=== PATIENT | male | born 1995 | race Caucasian/White ===

== ENCOUNTER 2016-06-21 08:51 | Inpatient (IN) | payer OTHER ==
[~2016-06-21] VITALS: Ht 182.9 cm; Wt 106.5 kg
--- NOTE | ~2016-06-21 | CLPRLASSUM ---
PATIENT: PATRICK ARNOLD | | [facility] UNIT #: [id number] | [address] AGE/SEX: 20 M : [birth year] | [address] | [place] [address] ADMIT/REG DATE: 06/21/16 | ROOM: [facility] LOC: ADTC | ADTC | Client Problem List/Assessment Summary Date: 06/22/16 Problems identified by the client: Client reported he is here on a plea agreement deal. Problems identified by significant others: His Dad was present when he brought him and reported client ended up in [facility] on a suicide attempt, and was ordered to come to treatment. Client's Strengths: Client identified his strengths as: He is a people, person, nice, easy to get along with and a hard worker. Problem List: Code: T Client continues to use alcohol &/or drugs despite ongoing negative consequences. Code: T Client does not "reach-out to others for help" and instead resumes using alcohol &/or drugs. Code: T Client has learned to deny or stuff feelings; needs to learn to identify and process feelings with safe people to acquire the necessary skills to maintain terminal gauger sobriety. Code: T Client needs to identify relapse warning signs and develop a plan to deal with them as they arise. Code De La Torre: T: to be addressed during course of treatment O: problem noted, expected to resolve itself with abstinence--specific tx plan not required R: problem noted, will be referred upon discharge PRIMARY COUNSELOR: CASS Rangel
--- NOTE | ~2016-06-21 | INDIVTXPLN ---
"PATIENT: PATRICK ARNOLD | | [facility] UNIT #: [id number] | [address] AGE/SEX: 20 M : [birth year] | [address] | [place] [address] ADMIT/REG DATE: 06/21/16 | [facility] ADTC | Individualized Treatment Plan Date: 06/22/16 Problem Statement/Issue Identified: Client continues to use alcohol &/or drugs despite ongoing negative consequences, and he did not reach out to others for help, but continued to drink. Goal: Client will learn how to identify negative consequences of his addiction, attend AA/NA meetings and meet men in recovery. Objectives/Activities to achieve goal: 1. Client is to complete the How to Get Started packet, process it with counselor and selected pages in group. Due Date:06/25/16 Complete: Incomplete: 2. Client is to complete Step 1, process it with counselor and selected pages in group. Due Date:06/28/16 Complete: Incomplete: 3. Client is to attend AA/NA meetings, ask for and get at least 5 names and numbers of men in recovery and share that list with counselor. Due Date:Ongoing Complete: Incomplete: Client signature Date Counselor signature Date Outcome/Measurement of Progress Towards Goal: Counselor's signature Date "
--- NOTE | ~2016-06-21 | INDIVTXPLN ---
"PATIENT: PATRICK ARNOLD | | [facility] UNIT #: [id number] | [address] AGE/SEX: 20 M : [birth year] | [address] | [place] [address] ADMIT/REG DATE: 06/21/16 | ROOM: [facility] LOC: ADTC | ADTC | Individualized Treatment Plan Date: 07/13/16 Problem Statement/Issue Identified: Client needs to identify relapse warning signs and develop a plan to deal with them as they arise. Goal: Client will learn how to identify relapse triggers and make a plan of how to avoid them. Objectives/Activities to achieve goal: 1. Client is to complete the Relapse Prevention packet and process it with counselor. Due Date:07/19/16 Complete: Incomplete: Client signature Date Counselor signature Date Outcome/Measurement of Progress Towards Goal: Counselor's signature Date "
--- NOTE | ~2016-06-21 | TXPLANREV ---
"PATIENT: PATRICK ARNOLD | | [facility] UNIT #: [id number] | [address] AGE/SEX: 20 M : [birth year] | [address] | [place] [id number] ADMIT/REG DATE: 06/21/16 | [facility] ADTC | Treatment Plan/Staffing Review Date: 07/06/16 Treatment plan was reviewed and determined appropriate as written: Yes Treatment plan was reviewed and the following changes/addition/deletions are necessary: Client is to continue working on treatment plan assignments. He is finishing up with feelings letters and will begin working on self-worth and getting to know himself better. Discharge plans were reviewed and determined appropriate as previously documented: Yes Discharge plans were reviewed and determined to be as follows: Client will be recommended to go to aftercare at [facility], attend 3-5 AA/NA meetings and return to his apartment. If he struggles in any way, he will be recommended to go to sober living. Other pertinent issues discussed during this staffing review include: None at this time. Staff Present: Poonam Camacho PRIMARY COUNSELOR: CASS Rangel Client Signature Counselor Signature Date Time "
--- NOTE | ~2016-06-21 | RESCARESUM ---
"PATIENT: DAKOTA ARNOLD | | [facility] UNIT #: [id number] | [address] AGE/SEX: 20 M : [birth year] | [address] | [place] [address] ADMIT/REG DATE: 06/21/16 | ROOM: [facility] LOC: ADTC | ADT | Summary of Residential Care Primary Counselor: Zhanna ODELL Date of Admission: 06/21/16 Date of Discharge: 07/19/16 Referral Source: [facility] Primary Care Provider Prior to Admission: Dr. Reynold Gonzalez Admitting Diagnosis: 303.90 Alcohol Use Disorder, Severe; 304.30 Cannabis Use Disorder, Severe; Depressive Disorder, NOS; Chemical-induced mood disorder; 305.10 Tobacco Dependence Discharge Diagnosis: Same Goals Achieved: Client was able to work on several things in treatment. He gained insight to the disease concept, he worked on grief, letting go of resentments, feelings, relapse prevention, getting to know himself, and taking time to learn how to meditate. Continued Obstacles to Sobriety/Relapse Issues: He identifies old people, places and things as obstacles. 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 Family Issues Addressed: Dakota and his family attended family education and we had a family session before he left. They were able to discuss family issues and are very much for his recovery and supporting him. Y Individual Therapy Y Group Therapy Y Educational Series on Substance Abuse Y Parents/Significant Others Attended Family Program N Acute Medical Problems During the Course of Treatment N Transferred to Hospital During the Course of Treatment Y Accepting of Substance Abuse Problem N Non-accepting of Substance Abuse Problem N Required Psychological or Psychiatric Consultation During the Course of Treatment Completed AA Step # 1 During This Level of Care Significant Incidences During Treatment: None Reason For Discharge: Y Completed Residential TX Goals and Ready For Next Level of Care N Left Tx Against Medical Advice/Treatment Goals Not Complete N Completed Residential Tx Goals But Refusing Continuing Care Recommendations N Discharged Due to Noncompliance/Treatment Goals not Completed N Discharged Earlier Than Planned Due to: PATIENT: DAKOTA ARNOLD | | [facility] UNIT #: [id number] | [address] AGE/SEX: 20 M : [birth year] | [address] | [place] [address] ADMIT/REG DATE: 06/21/16 | ROOM: [facility] LOC: ADTC | ADTC | Summary of Residential Care Continuing Care Plan/Recommendations: N Intensive Partial Care Y Sponsor N Partial Care Y AA Meetings/NA Meetings Y Outpatient N Co-dependency Services N Therapeutic Community N [address] N Mental Health Therapy N Marriage Counseling N Other Specific Continuing Care Plan: It is recommended that Dakota participate in an outpatient treatment program, attend 3-5 AA/NA meetings per week, get and call a sponsor on a regular basis, get a full time babysitter job, deal with all legal issues and learn how to work a strong program of recovery. PRIMARY COUNSELOR: CASS Rangel"
--- NOTE | ~2016-06-21 | TXPLANREV ---
"PATIENT: PATRICK ARNOLD | | [facility] UNIT #: [id number] | [address] AGE/SEX: 20 M : [birth year] | [address] | [place] [address] ADMIT/REG DATE: 06/21/16 | ROOM: [facility] LOC: ADTC | ADTC | Treatment Plan/Staffing Review "
--- NOTE | ~2016-06-21 | TXPLANREV ---
"PATIENT: PATRICK ARNOLD | | [facility] UNIT #: [id number] | [address] AGE/SEX: 20 M : [birth year] | [address] | [place] [address] ADMIT/REG DATE: 06/21/16 | [facility] | Treatment Plan/Staffing Review Date: 07/13/16 Treatment plan was reviewed and determined appropriate as written: Yes Treatment plan was reviewed and the following changes/addition/deletions are necessary: Client is to continue working on treatment plan assignments. He will begin working on relapse prevention. Discharge plans were reviewed and determined appropriate as previously documented: Yes Discharge plans were reviewed and determined to be as follows: Client will return to [place] to his apartment and has a job pending at [employer]. He will also be recommended to go to aftercare at [facility], attend 3-5 AA/NA meetings per week, as well as to get and call a sponsor on a regular basis. Other pertinent issues discussed during this staffing review include: None at this time. Staff Present: Debi Dobson PRIMARY COUNSELOR: CASS Rangel Client Signature Counselor Signature Date Time "
--- NOTE | ~2016-06-21 | INDIVTXPLN ---
"PATIENT: PATRICK ARNOLD | | [facility] UNIT #: [id number] | [address] AGE/SEX: 20 M : [birth year] | [address] | [place] [address] ADMIT/REG DATE: 06/21/16 | [facility] | Individualized Treatment Plan Date: 07/07/16 Problem Statement/Issue Identified: Client needs to identify ways to get to know himself better, which will in turn help improve self esteem, while he learns about the importance of spirituality. Goal: Client will get to know himself better, and learn about his thoughts and feelings and gain insight to spirituality and raising his self esteem. Objectives/Activities to achieve goal: 1. Client is to complete the Finish the Sentences, and I'm Worthwhile, because..... papers and process them with counselor. Due Date:07/13/16 Complete: Incomplete: 2. Client is to complete the Beginning Each Day papers on a daily basis, so he can learn about the positivity of his days, then process what he learns from them with counselor. Due Date:07/13/16 Complete: Incomplete: 3. Client is to complete 1-2 pages daily in the Quiet Moments packet and process them with counselor. Due Date:07/13/16 Complete: Incomplete: Client signature Date Counselor signature Date Outcome/Measurement of Progress Towards Goal: Counselor's signature Date "
--- NOTE | ~2016-06-21 | TXPLANREV ---
"PATIENT: PATRICK ARNOLD | | [facility] UNIT #: [id number] | [address] AGE/SEX: 20 M : [birth year] | [address] | [place] [phone] ADMIT/REG DATE: 06/21/16 | [facility] | Treatment Plan/Staffing Review Date: 06/29/16 Treatment plan was reviewed and determined appropriate as written: Yes Treatment plan was reviewed and the following changes/addition/deletions are necessary: Client is to continue working on treatment plan assignments. He is finished with Step 1 and will begin working on grief of a friend, and feelings letters. Discharge plans were reviewed and determined appropriate as previously documented: No. Discharge plans were reviewed and determined to be as follows: Client will benefit from going to sober living of some sort, but is hoping to return to his home and will do aftercare in [place], attend AA meetings and get a sponsor. Other pertinent issues discussed during this staffing review include: None at this time. Staff Present: Aide Dobson PRIMARY COUNSELOR: CASS Rangel Client Signature Counselor Signature Date Time "
--- NOTE | ~2016-06-21 | INDIVTXPLN ---
"PATIENT: PATRICK ARNOLD | | [facility] UNIT #: [id number] | [address] AGE/SEX: 20 M : [birth year] | [address] | [place] [id number] ADMIT/REG DATE: 06/21/16 | ROOM: [facility] LOC: ADTC | ADTC | Individualized Treatment Plan Date: 06/29/16 Problem Statement/Issue Identified: Client has learned to deny or stuff feelings, including grief and anger; needs to learn to identify and process feelings in a clean/sober manner. Goal: Client will learn how to identify and express feelings in a healthy, clean/sober manner. Objectives/Activities to achieve goal: 1. Client is to complete the Grief packet, which will include writing a goodbye letter to his friend who committed suicide, and process it all with counselor. Due Date:07/05/16 Complete: Incomplete: 2. Client is to write his parents a feelings letter, each separately, and process them with counselor and in family group, if/when able. Due Date:07/05/16 Complete: Incomplete: 3. Client is to write his friends boyfriend an angry letter, and process it with counselor. Due Date:07/05/16 Complete: Incomplete: Client signature Date Counselor signature Date Outcome/Measurement of Progress Towards Goal: Counselor's signature Date "
--- NOTE | 2016-06-21 13:23 | NUR ---
Education note: Client attended education speaker Neda on Tobacco.
--- NOTE | 2016-06-21 13:29 | NUR ---
ADMISSION NOTE Rights/Responsibilities: Copy given and explained to client. Signed and accepted by client. Client oriented to physical lay out of the ADTC unit, given Big Book and admission packet. A Filiberto was assigned.Tavares Client is a 20yr old single male. Referred by [facility]. Lives in [place], [place]. Brought to tx by father. DOC, alcohol, last used 06/18/16, ten drinks daily. Allergies: Peniciline, Meds: Nurse has them. Parents will particiapate in family sesions. Was searched no contraband. Initial paperwork given and guidelines gone over. Doctor was notified.
--- NOTE | 2016-06-21 14:20 | NUR ---
INITIAL/FAMILY SESSION 1 HR: Clt and his father were present. They advised clt came from , as he had been suicidal. He reported he was EPC'd but wasn't placed on the Mental Health Board. He was very quiet, had no questions, but his Dad did ask about family visiting and education. Clt was oriented to tx plans, schedules and what to expect from tx and this counselor. He stated his drug of choice is alcohol. Clt is to begin working on intitial paperwork.
--- NOTE | 2016-06-21 17:59 | NUR ---
Education: 1 Hour. Client attended "Forgiveness" lecture presented by staff.
--- NOTE | 2016-06-21 19:50 | NUR ---
RECOVERY 101 1 HR/ Clients all shared what they have struggled with in treatment and what helps them. This client shared he was into alcohol/pot, tried IOP and has had a couple DUI's so needed residential treatment.
--- NOTE | 2016-06-21 22:49 | NUR ---
tech note: Client was checked into his room. Client played a game for recreation & attended onsite NA meeting.Client was seen by the DR. First intro was given by the client. SE: coming to treatment.
--- NOTE | 2016-06-22 04:32 | NUR ---
tech note: client was motinless in no distress at all bed checks.
--- NOTE | 2016-06-22 13:54 | NUR ---
A.M. 1.5 hr res group/ratio 1:8/ Group heard a grief letter, a getting started, and also discussed shame, guilt, and forgiving self. This client related.
--- NOTE | 2016-06-22 15:21 | NUR ---
Tech Note: Client attended programming on Relapse Prevention and is working on Getting Started.
--- NOTE | 2016-06-22 16:28 | NUR ---
Relapse Prevention, 05/10 ration, 1.0 hours, Client attended and participated in relapse prevention education which focused on relapse triggers/issues.
--- NOTE | 2016-06-22 22:13 | NUR ---
TECH NOTE: Client attended Alumni meeting and on-site AA meeting. SE: education
--- NOTE | 2016-06-22 22:54 | NUR ---
EDUCATION NOTE: 1HR lecture on Shame given by counselor
--- NOTE | 2016-06-23 04:38 | NUR ---
Bed note: Client was in bed with eyes closed and no distress at all bed checks.
--- NOTE | 2016-06-23 10:01 | NUR ---
Tech note: Client is working on Step 1 and mtg with theron
--- NOTE | 2016-06-23 12:42 | NUR ---
Education note: Client attended speaker Abundio Morales
--- NOTE | 2016-06-23 12:51 | NUR ---
RES GROUP 1.5 HRS. RATIO 04/27. Topics today were assignments shared, addiction itself, craving, and spirituality. This client was quiet but remained attentive all through group.
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
--- NOTE | 2016-06-23 16:06 | NUR ---
SPIRITUAL EDUCATION 1 HR. Topic today was on how addiction is a disease of body mind and spirit and how the Steps fit in treating the SPIRIT. We also talked about ways to spirituality, payoffs, and how spirituality is related to both addiction and recovery.
--- NOTE | 2016-06-23 18:14 | NUR ---
Education: 1 Hour. Client attended "Boundaries" lecture presented by staff.
--- NOTE | 2016-06-23 22:00 | NUR ---
Tech note : Client played pictionary for rec and attended an onsite NA meeting. SE: Education
--- NOTE | 2016-06-24 05:16 | NUR ---
tech note: client was motionless in no distress at all bed checks.
--- NOTE | 2016-06-24 09:56 | NUR ---
TRAUMA NOTE: Clt denies any trauma in his life.
--- NOTE | 2016-06-24 11:30 | NUR ---
AM GRP 1.5 HRS, Ratio 1:11/ Clt sat mostly quiet, until prompted, then stated he didn't have anything to share.
--- NOTE | 2016-06-24 15:39 | NUR ---
Tech Note: Client participated in Spiritual Enrichment in the morning and went for an outdoor walk in the afternoon. Client stated that he is working on Step One.
--- NOTE | 2016-06-24 15:52 | NUR ---
step education/1 hr/ Focus was on step 6 and looking at character defects. Each person shared some questions and answers and identified what character defects they are ready to let go of and what ones they are not willing to let go of. This client participated.
--- NOTE | 2016-06-24 16:31 | NUR ---
Education 1 Hour: Client heard a presentaion on "Wellness in Recovery."
--- NOTE | 2016-06-24 23:02 | NUR ---
Tech note: Client worked on craft projects for the dance for rec and attended AA meeting SE:KEVIN hidalgo
--- NOTE | 2016-06-25 00:05 | NUR ---
Education note: Clients watched a movie on "my attitude' by David Powers.
--- NOTE | 2016-06-25 04:50 | NUR ---
Bed note; client was motionlees, with eyes closed at all bed checks.
--- NOTE | 2016-06-25 11:30 | NUR ---
Group 1.5 hr/ 11:1 Clients all got into discussion about how they found spirituality or struggle with HP concepts and a peer shared GS packet. This client was attentive.
--- NOTE | 2016-06-25 14:02 | NUR ---
PEER REVIEWS 1.25 HRS: Clt participated in peer reviews and took a risk to give open and honest feedback to those receiving a review.
--- NOTE | 2016-06-25 16:04 | NUR ---
Tech Note: Client went with group for outside walk and watched "Marijuana", by Guy Powers, for education. Clt is working on Step 1.
--- NOTE | 2016-06-25 23:31 | NUR ---
Tech Note: Client read guidelines with peers. Client watched tv. SE: Seeing his parents.
--- NOTE | 2016-06-26 05:29 | NUR ---
Bed Note: Client was motionless with eyes closed at all bed checks.
--- NOTE | 2016-06-26 15:32 | NUR ---
Tech Note: Client working on Step 1 and had visitors.
--- NOTE | 2016-06-26 20:24 | NUR ---
Tech Note: Client played a game for rec. They also attended the A.A.Meeting at [address] [place] [address]. SE: Vistation
--- NOTE | 2016-06-27 05:27 | NUR ---
Bed Note: Client was motionless with eyes closed at all bed checks.
--- NOTE | 2016-06-27 15:13 | NUR ---
Tech Note: Client participated in Big Book Study. Client stated that he is working on Step One.
--- NOTE | 2016-06-27 23:26 | NUR ---
Client attended A.A.Panel and helped with community clean.
--- NOTE | 2016-06-28 05:00 | NUR ---
Bed Note: Client was motionless with eyes closed at all bed checks.
--- NOTE | 2016-06-28 10:06 | NUR ---
Tech note: Client is working on Step 1 and was late for morning meditation.
--- NOTE | 2016-06-28 11:30 | NUR ---
AM GRP 1.5 HRS, Ratio 1:11/ Clt shared his How to Get Started pkt. He stated in it, that the most important people in his life as a kid were his parents, but in his teens it became his friends, and he was in and out of [facility], so got made fun of for it. He added that his best friend hung herself, and he is still very angry at her boyfriend, as she called and texted him, and he ignored it and/or didn't believe her. He heard he will be given the grief pkt to work on.
--- NOTE | 2016-06-28 14:35 | NUR ---
Education note: Client attended speaker for education Alban Godwin
--- NOTE | 2016-06-28 16:00 | NUR ---
RECOVERY 101 1 HR/ Clients all filled out list of 30 consequences from their use to help look at how each addictive chemical they ever used has caused problems and how minimizing can sabotage treatment. Discussed this and also learned about phases of recovery process from Denial to Acceptance & Surrender.
--- NOTE | 2016-06-28 22:32 | NUR ---
TECH NOTE: Client participated in playing Catch Phrase for REC and attended NA meeting. Redirected for sitting on the floor. SE: group
--- NOTE | 2016-06-28 23:54 | NUR ---
Education: 1 Hour. Client attended "Adult Children" presentation given by staff.
--- NOTE | 2016-06-29 05:20 | NUR ---
BED NOTE: Client was in bed, motionless with eyes closed all three bed checks.
--- NOTE | 2016-06-29 11:31 | NUR ---
GROUP 1.5 HRS. 1:10 Group discussion included defenses of blaming others and willingness to take responsibility for one's recovery. Peers processed HOW TO GET STARTED IN TREATMENT assignments. This client was mostly quiet and was redirected for having both feet up on the chair. He did share that he is working on grief due to friend's suicide.
--- NOTE | 2016-06-29 16:00 | NUR ---
Tech Note: Client attended speaker meeting, presented by Nutritional Services, and Relapse Prevention education. Client is currently working on a Grief pkt.
--- NOTE | 2016-06-29 16:25 | NUR ---
Relapse Prevention; 1.0 hours; Client attended and actively participated in relapse prevention which focused on compulsive behaviors and relapse.
--- NOTE | 2016-06-29 23:19 | NUR ---
Education note: 1 hour lecture given by counselor on "Self Esteem"
--- NOTE | 2016-06-29 23:25 | NUR ---
Tech note: Client worked on projects for the alumni michael for rec and attended AA meeting SEF:Evelyn
--- NOTE | 2016-06-30 04:10 | NUR ---
BED NOTE: Client was in bed, motionless with eyes closed all three bed checks.
--- NOTE | 2016-06-30 08:30 | NUR ---
IS 1 HR: Processed ashly's BPS. He shared about his family being close whn he grew up and he felt like he was in a normal family, but he didn't feel normal. He stated he always new he liked boys more than girls, but denied it, which he internalized, so beat himself up. He remembers feeling depressed, afraid to tell anyone, and when his friend told his parents, he became angry and distanced himself from the friend and his family. He accepts it today, and is good with it, but his parents are very gnosticist, so they just ignore it and don't talk about it. 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 He is to do a grief pkt on a friend who committed suicide.
--- NOTE | 2016-06-30 10:47 | NUR ---
Tech note: Client is working on Fl's and Mtg with cherie.
--- NOTE | 2016-06-30 11:35 | NUR ---
GROUP 1.5 HRS. 1:11 This client shared from his step 1 as assigned sharing pg. 10 and 15 examples of betraying values and pg. 11 effects on others. Group discussion included being honest and old behaviors especially dishonesty and keeping secrets.
--- NOTE | 2016-06-30 13:11 | NUR ---
Education note: Client attended speaker Augusto for education today.
--- NOTE | 2016-06-30 19:55 | NUR ---
SPIRITUaL EDUCATION 1 HR. Today we discussed difference between spirituality and islam, and then played a spiritual challenge game where group discussed thought provoking questions on spirituality and the meaning.
--- NOTE | 2016-06-30 22:41 | NUR ---
EDUCATION NOTE: 1 HR Counselor gave a lecture on Disease Concept
--- NOTE | 2016-06-30 23:24 | NUR ---
tech note: client played Pictionary for recreation & attended onsite NA meeting. Client was late for curfew. SE: NA meeting.
--- NOTE | 2016-07-01 04:08 | NUR ---
BED NOTE: Client was in bed, motionless with eyes closed all three bed checks.
--- NOTE | 2016-07-01 11:39 | NUR ---
Group 1.5 hrs 2:20 Client sat quietly for most of group. Client had to be redirected for talking with Leatha. Student: Cami Appiah
--- NOTE | 2016-07-01 15:16 | NUR ---
Tech Note: Client participated in Spiritual Enrichment in the morning and went for an outdoor walk in the afternoon. Client followed programming.
--- NOTE | 2016-07-01 16:48 | NUR ---
Family Education 3hrs Client attended family education and discussed past using history. Client shared about the consequences he experienced during active addiction. Client was accompanied by his mother and father. Client's father expressed how he was glad that his son was in treatment getting help. Client's mother expressed how she felt clueless to his drug use. Student: Cami Appiah
--- NOTE | 2016-07-01 22:05 | NUR ---
EDUCATION NOTE 1HR: Recovery committee presented information on recovery
--- NOTE | 2016-07-01 22:09 | NUR ---
EDUCATION NOTE 1HR: Clients watched Guy Powers video on Behavior
--- NOTE | 2016-07-01 22:32 | NUR ---
TECH NOTE: Client helped by doing crafts for the dance for REC, and attended AA meeting.
--- NOTE | 2016-07-02 04:36 | NUR ---
Bed note: client was in bed moitionless with eyes closed and no distress at all bed checks.
--- NOTE | 2016-07-02 12:40 | NUR ---
GROUP 1.5 HR/ 10:1 A Peer shared about never thinking about actions/impulsive and this led to group relating and sharing. This client got into sidetalk, but mostly was attentive and quiet.
--- NOTE | 2016-07-02 15:52 | NUR ---
PEER REVIEWS 1.25 HRS: Clt participated in peer reviews and took a risk to give open and honest feedback to those receiving a review.
--- NOTE | 2016-07-02 15:58 | NUR ---
Tech Note: Client watched video (The Enablers) and is working on Feelings Letters.
--- NOTE | 2016-07-02 21:54 | NUR ---
Tech Note : Client worked crafts and projects for the dance. Client watched TV.
--- NOTE | 2016-07-03 04:34 | NUR ---
Bed note: Client was in bed with eyes closed and no distress at all bed checks.
--- NOTE | 2016-07-03 17:49 | NUR ---
Tech Note: Client attended N.A. Panel and is working on FL's
--- NOTE | 2016-07-03 18:59 | NUR ---
tech note: client attended offsite Alumni Dance.
--- NOTE | 2016-07-04 04:50 | NUR ---
BED NOTE: Client was in bed, motionless with eyes closed all three bed checks.
--- NOTE | 2016-07-04 16:28 | NUR ---
Tech Note: Client participated in Big Book Study in the morning and went for a walk in the afternoon. Client stated that he is working on writing Feelings Letters.
--- NOTE | 2016-07-04 23:01 | NUR ---
tech note: Client attended AA Panel & participated in Community Clean. Client played cards & talked on the phone. SE: Pau.
--- NOTE | 2016-07-05 04:10 | NUR ---
bed note: client was in bed with eyes closed and no distress at all bed checks.
--- NOTE | 2016-07-05 10:38 | NUR ---
Tech notes: Client is working on Fl's.
--- NOTE | 2016-07-05 12:00 | NUR ---
Peer Review 1.5 hr/ Clients all participated in giving peer review to 4 peers on what they need to work on.
--- NOTE | 2016-07-05 12:52 | NUR ---
Education note: Client attended educational deangelo Devi on Marijuana.
--- NOTE | 2016-07-05 17:00 | NUR ---
FAMILY EDUCATION 3 HRS. Client was accompanied by his parents. They took part in the discussion on the family roles, codependency and detachment.
--- NOTE | 2016-07-05 21:13 | NUR ---
FAMILY GROUP 4;04/19 HR: Client, peers and attending family members heard several residential clients and their loved ones process FEELINGS LETTERS. Much of the focus tonight was on enabling and several attending family members owned that they are guilty of this and struggle with the concept of "tough love." Broken promises were also a common thread and family members are begining to see that they want to believe so badly that it sets them up to be manipulated in various ways. This client attended with his parents who were among those who admitted that they have enabled client for years. Both acknowledged that they are beginning to question the wisdom of their actions but verbalized how very difficult this is. Client and family members (?) had letters to process tonight, but with all that were in attendence, we ran out of time. Parents both said they would be happy to return next week and reaffirmed that after group. They both said it has been very meaningful. Client was relieved (!) and happy to put it off another week!!
--- NOTE | 2016-07-05 23:35 | NUR ---
Tech Note: Client attended N.A.Meeting. Client also went on walk for rec. He had family today.
--- NOTE | 2016-07-05 23:56 | NUR ---
Education Note: 1 hour lecture on communication given by counselor.
--- NOTE | 2016-07-06 04:10 | NUR ---
Bed Note: client was in bed with eyes closed and no distress at all bed checks.
--- NOTE | 2016-07-06 14:26 | NUR ---
A.M. 1.5 hr group/ratio 1:8/ Group heard a feelings letter. Discussion was on healthy verses unhealthy relationships and how addiction affects your children. This client was attentive.
--- NOTE | 2016-07-06 16:00 | NUR ---
IS 1 HR: Ashly shared his anger letter toward his friend's boyfriend, but stated it didn't help much, he's still really mad at him for not being there for his girlfriend so she wouldn't have killed herself. We discussed how it was still ultimately his friends choice. He also read the seymour letter to his friend. Ashly also shared his letters to his mother. He is to finish on his Dad's letter, then work on getting to know himself better and gain better self-esteem.
--- NOTE | 2016-07-06 17:06 | NUR ---
Relapse Prevention, 05/06, 1.0 hours, Client attended and actively participated in relapse prevention which focused on completing the quiz What Do You Know About Relapse?
--- NOTE | 2016-07-06 17:31 | NUR ---
Tech Note: Client is working on the TheMobileGamer (TMG) Book.
--- NOTE | 2016-07-06 23:12 | NUR ---
Tech Note: Client took walk around park for rec. Client attended A.A.Meeting. SE: A.A.Meeting
--- NOTE | 2016-07-06 23:23 | NUR ---
Education Note: Client attended a one hour session with [facility] on HIV/AIDS/STD's for education.
--- NOTE | 2016-07-07 04:46 | NUR ---
Bed Note: client was in bed with eyes closed and no distress at all bed checks.
--- NOTE | 2016-07-07 10:26 | NUR ---
Tech notes: Client is working on Spirtuality.
--- NOTE | 2016-07-07 12:50 | NUR ---
Group 1.5 hrs 1:10 Client participated in orientating a new peer on the purpose of group and guidelines. Student: Cami Appiah
--- NOTE | 2016-07-07 15:31 | NUR ---
SPIRITUAL EDUCATION 1 hr. Today we oriented newcomers, discussed Starfish story then reached out to newcomers writing letters of encouragment and welcome, and using word art to make Big Book Bookmarks as welcoming gift.
--- NOTE | 2016-07-07 16:00 | NUR ---
IS 1 HR: Ashly heard I called to ask his family to come to a family session, but they did not answer and his Mom has no room on her voice mail. He stated he will speak to them this weekend, and see if they are willing to come on the following Sat. He stated what he wants to talk to them about is his sexuality. We did discuss what he would like to say. He denies he's told anyone here, except his roommate, but not because he's worried they'll tribal judge him, but moreso, because people don't go around saying they are heterosexual, so why should he go around announcing he's bell? Ashly advised he is good w/ himself, just would like his parents to be, or at least be ok to talk about it.
--- NOTE | 2016-07-07 19:04 | NUR ---
Education: 1 Hour. Client attended Step 2 & Step 3 lecture given by staff.
--- NOTE | 2016-07-07 22:36 | NUR ---
Tech Note : Client went for a walk for rec and attened an onsite NA meeting. Client was redirected by feet on furniture. SE:
--- NOTE | 2016-07-08 05:13 | NUR ---
tech note: client was motionless in no distress at all bed checks.
--- NOTE | 2016-07-08 11:53 | NUR ---
Group 1.5 Hr Ratio 1:11/Topics were a feelings letter which lead to difficult dads. Client shared nothing and looked like he was going to sleep a couple times.
--- NOTE | 2016-07-08 13:43 | NUR ---
Tech Note: Client participated in Spiritual Enrichment in the morning and went for an outdoor walk in the afternoon. Client stated that he is working on, "Quiet Moments."
--- NOTE | 2016-07-08 14:14 | NUR ---
Education 1 Hour: Client heard a lecture and saw a demonstration on "Infection Prevention."
--- NOTE | 2016-07-08 16:05 | NUR ---
step Education/1 hr/ Focus was on step 8 "made a list of all persons we had harmed". Had them complete a set of questions on paper and then discussed. This person participated and shared he has a resentment towards a person who feels was responsible for a person dieing.
--- NOTE | 2016-07-08 23:02 | NUR ---
Tech note:client took walk for rec, participated in guided meditation and attended AA mtg. SE:KEVIN
--- NOTE | 2016-07-09 04:46 | NUR ---
Bed Note: Client was motionless with eyes closed at all bed checks.
--- NOTE | 2016-07-09 11:32 | NUR ---
GROUP 1.5 HRS. 1:9 Group discussion included processing step 1 assignment to included betraying values (pg. 10) and effects on onthers (pg. 11). This client was minimally involved in group and more involved in sidetalk with female peer GRETCHEN.
--- NOTE | 2016-07-09 12:38 | NUR ---
Peer Review 1.5 hr/ Clients all participated in giving peer review to 4 peers on what they need to work on.
--- NOTE | 2016-07-09 13:34 | NUR ---
Tech Note: Client watched Predator Pt.2 video and is working on Quiet Moments and Spirituality.
--- NOTE | 2016-07-09 23:43 | NUR ---
TECH NOTE: Client participated in reading guidelines, attended optional offsite AA meeting, and watched tv/movies SE: phone
--- NOTE | 2016-07-10 04:06 | NUR ---
BED NOTE: Client was in bed, motionless, with eyes closed all bed checks.
--- NOTE | 2016-07-10 15:51 | NUR ---
Tech Note: Client attended an off-site AA meeting in the morning and received a visit in the afternoon. Client stated that he is working on, "Quiet Moments" and "Toward Spirituality."
--- NOTE | 2016-07-10 19:42 | NUR ---
TECH NOTE: Client played [employer] for REC, attended offsite AA meeting and watched tv/movies. SE: Visitors
--- NOTE | 2016-07-11 04:09 | NUR ---
Bed Note: Clt lay motionless in bed with eyes closed showing no distress at all bed checks.
--- NOTE | 2016-07-11 14:49 | NUR ---
Tech Note: Client was smoking, in the [place]oke [place], with his 2 visitors in there with him. Tech walked outside and confronted client about breaking the rule of no visitors in the Smoke [place]. Client acknowledged that he knew the rule but they "were just talking". Tech informed visitors that they cannot go in there and reminded client. As tech was walking away the client laughed out loud.
--- NOTE | 2016-07-11 15:55 | NUR ---
Tech Note: Client read chapter 4 for Big Book study. Clt is working on Quiet Moments and Spirituality packets. Clt had visits and was redirected for having his visitors in the Smoke [place] with him.
--- NOTE | 2016-07-11 22:06 | NUR ---
Tech Note : Client listened to an AA panel member share his experience, strength and hope, watched tv and participated in community clean.
--- NOTE | 2016-07-12 04:48 | NUR ---
Bed Note: Clt lay motionless in bed with eyes closed showing no distress at all bed checks.
--- NOTE | 2016-07-12 10:19 | NUR ---
Tech notes: Client is working on Quiet Moments.
--- NOTE | 2016-07-12 11:30 | NUR ---
Group 1.5 hr/ 22:2 Clients all participated in Sculpturing today by role-playing, giving feedback and relating. This client was attentive and all did discuss relapse can happen to anyone, and how to prevent it.
--- NOTE | 2016-07-12 13:31 | NUR ---
Educational Note: Client watched a video "Inhalent Abuse"
--- NOTE | 2016-07-12 16:57 | NUR ---
Recovery 101 1 hr/ Clients all brought Big Books and were given highlighters to use big book as a tool in recovery. Group discussion was on honesty, half- measures, selfishness, resentments, forgiveness, 12 promises, acceptance, using sponsor, and more.
--- NOTE | 2016-07-12 18:20 | NUR ---
EDUCATION NOTE: 1HR Lecture on Feelings given by counselor.
--- NOTE | 2016-07-12 21:00 | NUR ---
FAMILY GROUP 4:1/ HR: Client, peers and attending family members heard this client and his parents process FEELINGS LETTERS. Much of the focus became client's "depression" which they say has been an issue even when he was a child. Much discussion followed on the need for accurate diagnosis, appropriate medication in addition to counseling for the best defense. It was also stressed that client needs to understand that alcohol (his drug of choice) is a depressant as well. Others who have similar issues spoke up in support and personal sharing. One attending family member shared that he has taken medication for years which he believes levels him out so that he can continue to live a recovery lifestyle. This individual stressed that this client's choices are between he and his physician but cautioned that he will face judgement by some members of [facility]. Client's parents acknowledged that they have learned a lot attending education sessions/groups. The recognize that they have enabled client and it has not helped him. They both pledged that they will always be there, no matter what.
--- NOTE | 2016-07-12 22:39 | NUR ---
Tech note: Client was in family
--- NOTE | 2016-07-13 04:38 | NUR ---
bed note:client was in bed with eyes closed and no distress at all bed checks.
--- NOTE | 2016-07-13 14:27 | NUR ---
Tech Note: Client participated in light stretching in the morning and went for an outdoor walk in the afternoon. Client stated that he is working on, "Quiet Moments" and "Toward Spirituality."
--- NOTE | 2016-07-13 14:42 | NUR ---
Education 0.5 Hour: Client watched the video, "How to Sabotage Your Treatment."
--- NOTE | 2016-07-13 15:18 | NUR ---
A.M. 1.5 hr group/ratio 1:9/ Group heard some feelings letters, grief packet, and a getting started assignment. Discussed fear of making friends when they have left in the past, importants of getting a sponsor, and having cravings. This client was attentive and gave some feedback.
--- NOTE | 2016-07-13 18:51 | NUR ---
Education: 1 Hour. Staff gave lecture on Step 1.
--- NOTE | 2016-07-13 23:38 | NUR ---
tech note: client played Pictionary for recreation,attended Guided Meditation & onsite AA meeting. SE: All day.
--- NOTE | 2016-07-14 04:41 | NUR ---
tech note: Client was motionless in no distress at all bed checks.
--- NOTE | 2016-07-14 10:06 | NUR ---
Tech note: Client is working on Quiet Moments and Spirtuality
--- NOTE | 2016-07-14 11:47 | NUR ---
Group 1.5 Hr Ratio 1:10/Topics were orientatinga new member to group rules and goals, a getting started packet and a vent letter. Group was interupted by a tornado drill. Client shared a vent letter to a person that did not do anything to prevent his friend from committing suicide.
--- NOTE | 2016-07-14 12:57 | NUR ---
Education note: Client attended educational speaker "Kit" on cross addiction.
--- NOTE | 2016-07-14 18:18 | NUR ---
Education: 1 Hour. Client attended Relapse Prevention lecture given by staff.
--- NOTE | 2016-07-14 18:24 | NUR ---
SPIRITUAL EDUCATION 1 HR. ORIENTED NEWCOMERS, DISCUSSED ADDICTIVE SELF VS SPIRITUAL SELF THEN DEPICTED IN ARTWORK.
--- NOTE | 2016-07-14 22:35 | NUR ---
tech note: Client played [employer]atch [employer] in recreation & attended onsite NA meeting. SE: NA.
--- NOTE | 2016-07-15 04:20 | NUR ---
Bed Note: Clt lay motionless in bed with eyes closed showing no distress at all bed checks.
--- NOTE | 2016-07-15 11:30 | NUR ---
AM GRP 1.5 HRS, Ratio 1:11/ Clt participated in grp discussion on various topics, and could relate to staying out of relationships, of controlling people, and it being both sexes, not just women, as a peer suggested.
--- NOTE | 2016-07-15 14:33 | NUR ---
Tech Note: Client participated in light stretching for morning exercise and went on an outdoor walk in the afternoon. Client stated that he is working on, "Quiet Moments."
--- NOTE | 2016-07-15 16:16 | NUR ---
Education 1 Hour: Client watched the video, "Feelings" by Father Dhruv.
--- NOTE | 2016-07-15 16:26 | NUR ---
Education 1 hr/ focus was on step 9 Making amends. This client said the relationship that bothers him the most is with his friends who was affected by his dirnking.
--- NOTE | 2016-07-15 19:00 | NUR ---
Education 1HR: Clt watched video entitled "Say Yes To Life" by father Rico Oropezaoth.
--- NOTE | 2016-07-15 22:46 | NUR ---
Tech Note: Clt played a game for recreation, attended GM and onsite AA mtg. SE was AA mtg
--- NOTE | 2016-07-16 04:40 | NUR ---
BED NOTE: Client was in bed, motionless with eyes closed all bed checks.
--- NOTE | 2016-07-16 10:25 | NUR ---
Tech Note: Client is working on Quiet Moments.
--- NOTE | 2016-07-16 11:30 | NUR ---
AM GRP 1.5 HRS, Ratio 1:11/ Clt participated in grp discussion on various topics and could relate to hurting family directly or indirectly w/ his drinking. His was more indirect, as they watched him slowly trying to kill himself.
--- NOTE | 2016-07-16 13:55 | NUR ---
Late Note for 07/13/16 due to illness: Relapse Prevention, 05/06, 1.0 hours, Client attended and actively participated in relapse prevention educatio which focused on internal and external triggers.
--- NOTE | 2016-07-16 14:58 | NUR ---
Peer reveiw 1 hr/ This client recieved a peer review and peers said he clowns around, hasnt accepted his addiction, has reservations, has resentments, uses humour to cover, worries about everyone else instead of self.
--- NOTE | 2016-07-16 21:38 | NUR ---
Tech note : Client talked on the phone and watched tv. He walked to an offsite AA meeting.
--- NOTE | 2016-07-17 04:42 | NUR ---
Bed note: Client was in bed with eyes closed and no distress at all bed checks.
--- NOTE | 2016-07-17 09:30 | NUR ---
IS 1 HR: WE discussed clt d/c plan, and that his parents will come to pick him up at 5:30 and we will d/c him after that. He was asked if he still wants to confront them or discuss w/ them his sexuality, but he claims he did so, and things are good now. His dad was quiet, but his Mom let him know they don't understand, but do accept. He did the survey and will finish prior to leaving w/ all other paperwork.
--- NOTE | 2016-07-17 14:58 | NUR ---
Tech note: Client attended NA panel and is working on Quiet moments.
--- NOTE | 2016-07-17 20:45 | NUR ---
Tech note: Client worked on beaded projects or watched basketball game for rec attended offsite AA meeting SE:breann
--- NOTE | 2016-07-18 04:49 | NUR ---
Bed note: client was in bed with eyes closed and no distress at all bed checks, awake at first bed check
--- NOTE | 2016-07-18 15:29 | NUR ---
TECH NOTE: Client participated in big book study, went on a walk, and watched tv/movies.
--- NOTE | 2016-07-18 18:59 | NUR ---
tech note: Attended AA panel, participated in community clean, watched tv and movies
--- NOTE | 2016-07-19 04:16 | NUR ---
tech note: client was motionless in no distress at all bed checks.
--- NOTE | 2016-07-19 09:47 | NUR ---
Tech note: Client is working on Relapse Prevention and mtg with cherie.
--- NOTE | 2016-07-19 11:30 | NUR ---
Morning Group, 04/28 ratio, 1.5 hours, Client attended and actively participated in group. Client shared what he has gotten out of treatment this time and that he is excited to be leaving.
--- NOTE | 2016-07-19 12:56 | NUR ---
Education note: Client attended education speaker Ewa on tobacco
--- NOTE | 2016-07-19 16:00 | NUR ---
Recovery 101 1 hr/ Clients all shared their experiences that have helped them the most for their recovery past and present. This client shared about himself, needing to let go of resentments and work through issues over brothers suicide.
--- NOTE | 2016-07-19 17:30 | NUR ---
FINAL/FAMILY SESSION 1 HR: Ashly and his parents were present. We discussed what ashly has worked on while in tx and what his aftercare plans are. He stated he plans to attend aftercare w/ his old counselor, and he also plans to attend AA and NA meetings and hopefully get hired on at the hospital. He asked his parents how they are doing w/ the conversation they had about his sexuality, and they are still struggling with it, as they think it's not normal and they think he'll have problems all his life. He allowed them to share their thoughts and then he let them know he is good w/ it and hopes they will accept it. They told him they are very pro-Dakota, and whatever they think or say, they just want him to be happy.
--- NOTE | 2016-07-19 18:29 | NUR ---
DISCHARGE NOTE Clt left tx with parents at 1820 hrs taking all personal effects with him including items from lock closets. A discharge instruction sheet was signed by ravinder with copy being given him upon departure.
--- NOTE | 2016-08-18 09:07 | DS ---
ADMIT: 06/21/2016 RM/LOC: [facility] MR#: [id number] [address] [id number] DAK[place] ARNOLD [address] [place] [address] [place] [address] General Discharge Summary SEX: M AGE: 20 : 1995 ADMISSION DATE: 06/21/2016 DISCHARGE DATE: 07/19/2016 This is for his admission to the residential care program at the [facility]. ADMITTING DIAGNOSIS: As per history and physical. FINAL DIAGNOSES: 1. Alcohol use disorder, severe. 2. Cannabis use disorder, severe. 3. Depressive disorder, not otherwise specified. 4. Chemical-induced mood disorder. 5. Tobacco use disorder. COMPLICATIONS: None. OPERATIONS: None. CLINICAL HISTORY: The patient is a 20-year-old white male, admitted to the residential care program at this time for treatment of his alcohol use disorder and cannabis use disorder. The patient comes to treatment after having been recently EPC'd to [facility]. For details of his pattern of usage and problems associated with his ongoing chemical dependency and substance abuse, please see clinical history portion of the dictated history and physical. Please also see dictated history and physical for past medical history and physical exam findings. LABORATORY AND X-RAY SUMMARY FROM THIS ADMISSION: None indicated, none performed. HOSPITAL COURSE: The patient was admitted and assigned to his primary counselor, PRAFUL Rangel [facility]. He remained in the treatment program from 06/21/2016 until 07/19/2016. While in treatment, he participated in individual therapy and group therapy. He was also given the educational series on substance abuse and worked on many of these assignments throughout his stay at the treatment program. While in treatment, Dakota and his family attended the family education and family group sessions. His family was very supportive in these group sessions. While in treatment, he was accepting of his substance abuse problem. He was able to complete step 1 of AA during this level of care. While in treatment, he had no significant medical issues. He was able to work on several things in treatment. He gained insight into the disease concept of addiction. He worked on past grief issues and letting go of resentments. He worked on relapse prevention and was able to identify obstacles to his long-term sobriety. He had a very positive attitude towards treatment and worked well with the staff in both individual and group settings. He ultimately completed his residential treatment goals and was felt to be ready for the next level of care. He was dismissed to outpatient treatment. The patient is going to do weekly individual and weekly group ADMIT: 06/21/2016 RM/LOC: [facility] MR#: [id number] [address] [id number] DAK[place] ARNOLD [address] [place] [address] General Discharge Summary SEX: M AGE: 20 : 1995 sessions on an outpatient basis. He is going to participate in 3-5 AA or NA meetings per week and maintain regular contact with a sponsor. He is going to pursue full-time employment and deal with all pending legal issues and work a strong program of recovery. CONDITION AT DISCHARGE: [place] to be improved. DISCHARGE MEDICATIONS: His medications at dismissal included: 1. Lexapro 20 mg daily. 2. Antabuse 250 mg daily. 3. Multivitamin 1 daily. 4. Thiamine 100 mg daily. Miguel Ángel Ambriz MD/ suel JOB #: [id number] CC: Miguel Ángel Ambriz MD, Attending Physician FAMILY PHYSICIAN, Family Physician
== END 2016-07-19 18:20 | disposition home or self-care (01) | DRG 895 ==
LOC: ADTC 08:51
PROVIDERS: ADMIT Family Medicine
PROC: HZ43ZZZ Group Counseling for Substance Abuse Treatment, 12-Step (ICD-10-PCS; principal; 2016-06-21)
PROC: HZ34ZZZ Individual Counseling for Substance Abuse Treatment, Interpersonal (ICD-10-PCS; principal; 2016-06-21)
PROC: HZ63ZZZ Family Counseling for Substance Abuse Treatment (ICD-10-PCS; principal; 2016-06-21)
DX: F10.20 Alcohol dependence, uncomplicated (principal); F19.24 Other psychoactive substance dependence with psychoactive substance-induced mood disorder; F32.9 Major depressive disorder, single episode, unspecified; F12.20 Cannabis dependence, uncomplicated; F17.210 Nicotine dependence, cigarettes, uncomplicated; Z65.3 Problems related to other legal circumstances